=== PATIENT | female | born 1955 | race Caucasian/White ===

== ENCOUNTER → 2021-01-14 | Outpatient (CLI) | payer MEDICARE ==
[~2021-01-14] MED LIST: OMNIPAQUE 350 MG/ML, 100ML BOTTLE ONE
== END | disposition home or self-care (01) ==
LOC: CFH 09:12
PROVIDERS: ATTEND Physician Assistant Medical
DX: K59.04 Chronic idiopathic constipation (principal); R19.00 Intra-abdominal and pelvic swelling, mass and lump, unspecified site; I10 Essential (primary) hypertension; J32.4 Chronic pansinusitis
CPT/HCPCS: 74178; Q9967

== ENCOUNTER → 2021-07-28 | Outpatient (CLI) | payer MEDICARE | END | disposition home or self-care (01) | LOC: CVU 10:42 | PROVIDERS: ATTEND Internal Medicine Cardiovascular Disease | DX: I08.2 Rheumatic disorders of both aortic and tricuspid valves (principal); R06.02 Shortness of breath; R07.89 Other chest pain | CPT/HCPCS: 78452; 93017; 93306; A9502 ==